=== PATIENT | female | born 1955 | race Caucasian/White ===

== ENCOUNTER → 2016-09-27 | Outpatient (CLI) | payer BC ==
[~2016-09-27] MED LIST: ACTOS PO; ASPIRIN81 M1 PO; AUGMENTIN PO; AVAPRO300 M1 PO; CADUET 10 MG/401 TAB PO; EFFEXOR PO; EFFEXOR75 MG PO; GABAPENTIN300 MG PO; HCTZ PO; JANUMET 50-501 UDTAB PO; KLOR-CON PO; LOVAZA1 G; LOVAZA1 G PO; TUSSINEX PO; ZETIA PO
--- NOTE | ~2016-09-27 | CT138 ---
[facility] A Service [facility] RADIOLOGY TEXT RESULTS PATIENT: ABHAY SOL LOCATION: [facility] : 57 UNIT #: [id number] AGE: [address]: DORIE ROY APRN SEX: F ORDER DR: [id number] [id number] [facility]. [place], [place] [address] [id number] O MR#: [id number] Acc #: [id number] NAME: ABHAY SOL. : 1955 SEX: F STUDY DATE/TIME: 09/27/2016 13:41 UNIT: [facility] ROOM: STUDY DESCRIPTION: CT Lung screening initial Attending Physician: Toro Larsen Ordering Physician: Staff Doctor Not On Primary Care Physician: Toro Larsen MEDICAL IMAGING REPORT This report is preliminary unless electronic signature is present EXAM CT lung cancer screening. DATE OF EXAM 09/27/2016 INDICATIONS Lung cancer screening. 60 pack year smoking history. PROCEDURE Unenhanced low-dose CT of the chest performed per lung cancer screening protocol. CT-DI is 2.95 mGy. Total DLP is 114 mGy-cm. COMPARISON 11/25/2008 TECHNIQUE NOTE: This CT exam was performed with one or more of the following radiation dose reduction techniques: automatic exposure control, adjustment of mA and/or kV according to patient size, and iterative reconstruction. FINDINGS No suspicious pulmonary nodule. No adenopathy. No clearly acute findings in the included upper abdomen. No aggressive appearing bone lesion. IMPRESSION 1. No suspicious pulmonary nodule. 2. LungRADS category 1 negative. Per the ACR LungRADS recommendations, suggest patient continue with annual low-dose lung cancer screening. Dictated by... [facility] A Service [facility] RADIOLOGY TEXT RESULTS PATIENT: ABHAY SOL LOCATION: [facility] : 57 UNIT #: [id number] AGE: [address]: DORIE ROY APRN SEX: F ORDER DR: Miles Moreno M.D. THIS IS AN ELECTRONICALLY VERIFIED REPORT Miles Moreno M.D. at 09/28/2016 2:11 PM SHARONA/kj TD: 09/27/2016 19:43 JOB #: [id number] MEDICAL IMAGING REPORT COPY
--- NOTE | ~2016-09-27 | MY6 ---
[facility] A Service of [facility] RADIOLOGY TEXT RESULTS PATIENT: ABHAY SOL LOCATION: [facility] ACC #: [id number] : 57 UNIT #: [id number] AGE: [address]: DORIE ROY APRN SEX: F ORDER DR: [id number] [facility] [address]. [place], [place] [address] [id number] O MR#: [id number] Acc #: [id number] NAME: ABHAY SOL. : 1955 SEX: F STUDY DATE/TIME: 09/27/2016 12:30 UNIT: [facility] ROOM: STUDY DESCRIPTION: MY Mammogram Dx Dig [facility]ike Attending Physician: Toro Larsen Ordering Physician: Staff Doctor Not On Primary Care Physician: Toro Larsen MEDICAL IMAGING REPORT This report is preliminary unless electronic signature is present EXAM Bilateral digital diagnostic mammogram. DATE OF EXAM 09/27/2016 INDICATIONS Superior right breast pain for the past 2 years. PROCEDURE Bilateral CC and MLO views were obtained on a digital mammography unit. FDA-approved CAD device was utilized. Area of patient's clinical concern was marked with skin markers. COMPARISON 03/15/2015 FINDINGS Breasts are predominately fat replaced. There is no dominant mass or suspicious calcification. IMPRESSION Negative digital diagnostic mammogram. Recommend patient continue with yearly screening. Patients over the age of 40 are entered into a reminder system with target due date for the next mammogram. A result letter will also be sent to the patient. BIRADS: 1 Negative. [facility] A Service of [facility] RADIOLOGY TEXT RESULTS PATIENT: ABHAY SOL LOCATION: [facility] : 57 UNIT #: [id number] AGE: [address]: DORIE ROY APRN SEX: F ORDER DR: Dictated by... Miles Moreno M.D. THIS IS AN ELECTRONICALLY VERIFIED REPORT Miles Moreno M.D. at 09/28/2016 2:11 PM EEMirela/kj TD: 09/27/2016 18:30 JOB #: [id number] MEDICAL IMAGING REPORT COPY
== END | disposition home or self-care (01) ==
LOC: CMAM 12:11
DX: N64.4 Mastodynia (principal); F17.210 Nicotine dependence, cigarettes, uncomplicated
CPT/HCPCS: G0204; G0297